=== PATIENT | female | born 1955 | race Caucasian/White ===

== ENCOUNTER → 2016-06-03 | Outpatient (CLI) | payer MEDICAID | LOC: BMCIMAGING 10:28 | DX: Z12.31 Encounter for screening mammogram for malignant neoplasm of breast (principal) | CPT/HCPCS: G0202 ==

== ENCOUNTER → 2017-06-05 | Outpatient (CLI) | payer MEDICAID | LOC: BMCIMAGING 13:10 | DX: Z12.31 Encounter for screening mammogram for malignant neoplasm of breast (principal) ==

== ENCOUNTER → 2017-10-17 | Outpatient (CLI) | payer MEDICAID | LOC: FIMAGING 12:21 | PROVIDERS: ATTEND Family Medicine | DX: J45.40 Moderate persistent asthma, uncomplicated (principal); J98.4 Other disorders of lung; Z77.22 Contact with and (suspected) exposure to environmental tobacco smoke (acute) (chronic) ==

== ENCOUNTER → 2017-10-30 | Outpatient (CLI) | payer MEDICAID | LOC: FIMAGING 08:49 | PROVIDERS: ATTEND Family Medicine | DX: R91.1 Solitary pulmonary nodule (principal); I25.10 Atherosclerotic heart disease of native coronary artery without angina pectoris ==

== ENCOUNTER → 2018-03-28 | Outpatient (CLI) | payer OTHER, MEDICARE | LOC: FIMAGING 08:28 | PROVIDERS: ATTEND Family Medicine | DX: Z13.820 Encounter for screening for osteoporosis (principal); N95.9 Unspecified menopausal and perimenopausal disorder; Z79.890 Hormone replacement therapy ==

== ENCOUNTER → 2018-06-06 | Outpatient (CLI) | payer OTHER, MEDICARE | LOC: BMCIMAGING 12:23 | PROVIDERS: ATTEND Family Medicine | DX: Z12.31 Encounter for screening mammogram for malignant neoplasm of breast (principal) ==